=== PATIENT | male | born 1945 | race Caucasian/White ===

== ENCOUNTER 2020-11-10 14:07 | Emergency (ER) | payer OTHER ==
[2020-11-10] MEDS ORDERED: Sodium Chloride 0.9% 500 ML IV ONE (14:55)
[2020-11-10] MEDS ORDERED: Ketorolac 30 MG/ML SDV IVPUSH ONE (14:55)
[2020-11-10] MEDS ORDERED: Ondansetron 4 MG/2 ML SDV IVPUSH ONE (15:18)
[2020-11-10] MEDS ORDERED: Iopamidol 755 Mg/ML 100 ML Bottle IV ONE (15:40)
--- NOTE | 2020-11-10 15:48 | EDM.PDOC ---
ED HPI GENERAL MEDICAL PROBLEM - General Chief Complaint: Abdominal Pain Stated Complaint: STOMACH PAIN Time Seen by Provider: 11/10/20 14:25 Source of Information: Reports: Patient History Limitations: Reports: No Limitations - History of Present Illness INITIAL COMMENTS - FREE TEXT/NARRATIVE: c/o LLQ pain onset 4d ago at 5a until 10:30a, no radiation, then pain free, sharp felt fine 3d ago had pain again yesterday that has gotten worse unable to sleep last night, had 4 drinks alcohol in evening and did not want to come to ED as he had alcohol on breath no f/c/d last colonoscopy 10y ago, no polyps, does not think he had tics but not sure, done at [facility] says his has had diverticulitis pain localized to one specific area an LLQ towards flank, no back pain last BM 1d ago that was formed Right Lower Abdomen Pain Score (Numeric/FACES): 8 - Related Data Allergies Allergy/AdvReac Type Severity Reaction Status Date / Time No Known Allergies Allergy Verified 11/10/20 14:27 Home Meds: Home Meds Ascorbic Acid [Vitamin C] 1,000 mg PO DAILY 11/10/20 [History] Aspirin 81 mg PO DAILY 11/10/20 [History] Ciprofloxacin [Ciprofloxacin HCl] 500 mg PO BID #20 tab 11/10/20 [Rx] Finasteride [Proscar] 5 mg PO DAILY 11/10/20 [History] Glycerin/Propylene Glycol [Artificial Tears Drops] 1 drop EYEBOTH BID 11/10/20 [History] Hydrocodone/Acetaminophen [Hydrocodon-Acetaminophen 5-325] 1 each PO Q6H #12 tablet 11/10/20 [Rx] Ketorolac [Toradol] 10 mg PO QID #20 tab 11/10/20 [Rx] Multivitamin [Multi-Vitamin Daily] 1 tab PO DAILY 11/10/20 [History] Sennosides/Docusate Sodium [Docusate Sodium-Sennosides Tab] 2 tab PO BID PRN 11/10/20 [History] Sertraline [Zoloft] 100 mg PO BEDTIME 11/10/20 [History] Simvastatin [Zocor] 20 mg PO BEDTIME 11/10/20 [History] Valproic Acid [Depakene] 250 mg PO BID 11/10/20 [History] Past Medical History Cardiovascular History: Reports: High Cholesterol Genitourinary History: Reports: BPH, Renal Calculus Psychiatric History: Reports: Anxiety, Depression, PTSD - Infectious Disease History Infectious Disease History: Reports: Chicken Pox, Measles, Mumps - Past Surgical History Cardiovascular Surgical History: Reports: None Social & Family History - Tobacco Use Tobacco Use Status *Q: Former Tobacco User Used Tobacco, but Quit: Yes Month/Year Tobacco Last Used: 1999 Second Hand Smoke Exposure: No - Caffeine Use Caffeine Use: Reports: Coffee - Alcohol Use Days Per Week of Alcohol Use: 7 Number of Drinks Per Day: 1 Total Drinks Per Week: 7 - Recreational Drug Use Recreational Drug Use: No ED ROS GENERAL - Review of Systems Review Of Systems: See Below Constitutional: Denies: Fever, Chills, Diaphoresis HEENT: Reports: No Symptoms Respiratory: Reports: No Symptoms Cardiovascular: Reports: No Symptoms Endocrine: Reports: No Symptoms GI/Abdominal: Reports: Abdominal Pain, Other (mild nausea) : Reports: No Symptoms Musculoskeletal: Reports: No Symptoms Skin: Reports: No Symptoms Neurological: Reports: No Symptoms Psychiatric: Reports: No Symptoms Hematologic/Lymphatic: Reports: No Symptoms Immunologic: Reports: No Symptoms ED EXAM, GI/ABD - Physical Exam Exam: See Below Exam Limited By: No Limitations General Appearance: Alert, WD/WN, No Apparent Distress Nose: Normal Inspection, Normal Mucosa, No Blood Throat/Mouth: Normal Inspection, Normal Voice, No Airway Compromise Head: Atraumatic, Normocephalic Neck: Normal Inspection, Supple, Non-Tender, Full Range of Motion. No: Lymphadenopathy (R), Lymphadenopathy (L) Respiratory/Chest: No Respiratory Distress, Lungs Clear, Normal Breath Sounds, No Accessory Muscle Use, Chest Non-Tender Cardiovascular: Regular Rate, Rhythm, No Edema, No Murmur GI/Abdominal Exam: Normal Bowel Sounds, Soft, No Organomegaly, No Distention, Other (1-2+ tender just above L anterior superior iliac spine) Back Exam: Normal Inspection, Full Range of Motion. No: CVA Tenderness (R), CVA Tenderness (L) Extremities: Normal Inspection, Normal Range of Motion, Non-Tender, No Pedal Edema Neurological: Alert, Oriented, CN II-XII Intact, Normal Cognition, No Motor/Sensory Deficits Psychiatric: Normal Affect, Normal Mood Skin Exam: Warm, Dry, Intact, Normal Color, No Rash Lymphatic: No Adenopathy Course - Vital Signs Last Recorded V/S: Last Vital Signs Temp 36.8 C 11/10/20 14:17 Pulse 84 11/10/20 14:17 Resp 18 11/10/20 14:17 BP 143/82 H 11/10/20 14:17 Pulse Ox 96 11/10/20 14:17 - Orders/Labs/Meds Orders: Active Orders 24 hr Category Date Time Status Abdomen Pelvis w Cont [CT] Stat Exams 11/10/20 14:56 Taken Labs: Laboratory Tests 11/10/20 11/10/20 11/10/20 Range/Units 15:00 15:00 15:00 WBC 5.0 (3.2-10.1) x10-3/uL RBC 4.51 (3.90-5.90) x10(6)uL Hgb 14.7 (12.9-17.7) g/dL Hct 43.2 (38.3-50.1) % MCV 95.6 (80.8-98.7) fL MCH 32.5 (27.0-33.3) pg MCHC 34.0 (28.7-35.3) g/dL RDW 12.5 (12.4-15.0) % Plt Count 194 (117-477) x10(3)uL MPV 7.9 (6.7-11.0) fL Neut % (Auto) 55.8 (40.3-71.8) % Lymph % (Auto) 24.7 (15.8-45.3) % Lucas % (Auto) 15.6 H (5.5-15.2) % Eos % (Auto) 3.5 (0.1-6.8) % Baso % (Auto) 0.4 (0.3-3.8) % Neut # (Auto) 2.8 (1.7-6.9) x10-3/uL Lymph # (Auto) 1.2 (0.5-4.5) x10-3/uL Lucas # (Auto) 0.8 (0.0-1.2) x10-3/uL Eos # (Auto) 0.2 (0.0-0.6) x10-3/uL Baso # (Auto) 0.0 (0.0-0.3) x10-3/uL Sodium 144 (135-145) mmol/L Potassium 4.7 (3.5-5.3) mmol/L Chloride 104 (100-110) mmol/L Carbon Dioxide 32 (21-32) mmol/L BUN 21 H (7-18) mg/dL Creatinine 1.1 (0.70-1.30) mg/dL Est Cr Clr Drug Dosing 53.97 mL/min Estimated GFR (MDRD) > 60 (>60) BUN/Creatinine Ratio 19.1 (9-20) Glucose 88 (80-116) mg/dL Calcium 9.1 (8.6-10.2) mg/dL Total Bilirubin 0.3 (0.1-1.3) mg/dL AST 13 (5-25) IU/L ALT 18 (12-36) U/L Alkaline Phosphatase 55 L (56-112) IU/L C-Reactive Protein 4.8 H* (0.5-0.9) mg/dL Total Protein 7.4 (6.0-8.0) g/dL Albumin 3.5 (3.2-4.6) g/dL Globulin 3.9 g/dL Albumin/Globulin Ratio 0.9 Urine Color (YELLOW) Urine Appearance (CLEAR) Urine pH (5.0-6.5) Ur Specific Cypress (1.010-1.025) Urine Protein (NEGATIVE) mg/dL Urine Glucose (UA) (NORMAL) mg/dL Urine Ketones (NEGATIVE) mg/dL Urine Occult Blood (NEGATIVE) Urine Nitrite (NEGATIVE) Urine Bilirubin (NEGATIVE) Urine Urobilinogen (NEGATIVE) mg/dL Ur Leukocyte Esterase (NEGATIVE) Urine RBC (0-5) Urine WBC (0-5) Ur Squamous Epith Cells (NS,R,O) Urine Bacteria (NS) 11/10/20 Range/Units 16:15 WBC (3.2-10.1) x10-3/uL RBC (3.90-5.90) x10(6)uL Hgb (12.9-17.7) g/dL Hct (38.3-50.1) % MCV (80.8-98.7) fL MCH (27.0-33.3) pg MCHC (28.7-35.3) g/dL RDW (12.4-15.0) % Plt Count (117-477) x10(3)uL MPV (6.7-11.0) fL Neut % (Auto) (40.3-71.8) % Lymph % (Auto) (15.8-45.3) % Lucas % (Auto) (5.5-15.2) % Eos % (Auto) (0.1-6.8) % Baso % (Auto) (0.3-3.8) % Neut # (Auto) (1.7-6.9) x10-3/uL Lymph # (Auto) (0.5-4.5) x10-3/uL Lucas # (Auto) (0.0-1.2) x10-3/uL Eos # (Auto) (0.0-0.6) x10-3/uL Baso # (Auto) (0.0-0.3) x10-3/uL Sodium (135-145) mmol/L Potassium (3.5-5.3) mmol/L Chloride (100-110) mmol/L Carbon Dioxide (21-32) mmol/L BUN (7-18) mg/dL Creatinine (0.70-1.30) mg/dL Est Cr Clr Drug Dosing mL/min Estimated GFR (MDRD) (>60) BUN/Creatinine Ratio (9-20) Glucose (80-116) mg/dL Calcium (8.6-10.2) mg/dL Total Bilirubin (0.1-1.3) mg/dL AST (5-25) IU/L ALT (12-36) U/L Alkaline Phosphatase (56-112) IU/L C-Reactive Protein (0.5-0.9) mg/dL Total Protein (6.0-8.0) g/dL Albumin (3.2-4.6) g/dL Globulin g/dL Albumin/Globulin Ratio Urine Color Yellow (YELLOW) Urine Appearance Slightly cloudy (CLEAR) Urine pH 6.0 (5.0-6.5) Ur Specific Cypress 1.015 (1.010-1.025) Urine Protein Negative (NEGATIVE) mg/dL Urine Glucose (UA) Normal (NORMAL) mg/dL Urine Ketones Negative (NEGATIVE) mg/dL Urine Occult Blood Large H (NEGATIVE) Urine Nitrite Negative (NEGATIVE) Urine Bilirubin Negative (NEGATIVE) Urine Urobilinogen Normal (NEGATIVE) mg/dL Ur Leukocyte Esterase Small H (NEGATIVE) Urine RBC 10-20 H (0-5) Urine WBC 0-5 (0-5) Ur Squamous Epith Cells Occasional (NS,R,O) Urine Bacteria Rare H (NS) Meds: Medications Discontinued Medications Generic Name Dose Route Start Last Admin Trade Name Alfonsoq PRN Reason Stop Dose Admin Sodium Chloride 500 mls @ 999 mls/hr 11/10/20 14:55 11/10/20 15:01 Normal Saline IV 11/10/20 15:25 999 mls/hr .BOLUS ONE Administration Iopamidol 100 ml 11/10/20 15:40 11/10/20 15:52 Iopamidol 755 Mg/Ml 100 Ml Bottle IV 11/10/20 15:41 100 ml . DIRECTED ONE Administration Ketorolac Tromethamine 30 mg 11/10/20 14:55 11/10/20 15:06 Ketorolac 30 Mg/Ml Sdv IVPUSH 11/10/20 14:56 30 mg ONETIME ONE Administration Ondansetron HCl 4 mg 11/10/20 15:18 11/10/20 15:33 Ondansetron 4 Mg/2 Ml Sdv IVPUSH 11/10/20 15:19 4 mg ONETIME ONE Administration - Re-Assessments/Exams Free Text/Narrative Re-Assessment/Exam: 11/10/20 17:07 6 x 8 mm stone at left UVJ per Dr Grande urologist called at [facility], I spoke with [facility] operator helper who paged urologist, however page went to voicemail, no call back received at time of d/c pt said he could be contacted at home at [phone] or on cell at [phone] later this evening if urologist calls back on Proscar x 1m, has not tolerated tamsulosin in past, made him feel like he was having an OH CRP quite high, likely from prostatitis, ANNIE deferred as urologist will need to do one and he needs an antibiotic regardless pt has had kidney stones in past altho not in recent years present and received instructions as well Departure - Departure Time of Disposition: 16:52 Disposition: Home, Self-Care 01 Condition: Good Clinical Impression: Left ureteral stone, Hydroureter, left, Hydronephrosis, left, Nephrolithiasis, Elevated C-reactive protein (CRP), BPH (benign prostatic hyperplasia) - Discharge Information *PRESCRIPTION DRUG MONITORING PROGRAM REVIEWED*: Not Applicable *COPY OF PRESCRIPTION DRUG MONITORING REPORT IN PATIENT EH: Not Applicable Prescriptions: Ciprofloxacin [Ciprofloxacin HCl] 500 mg PO BID #20 tab Hydrocodone/Acetaminophen [Hydrocodon-Acetaminophen 5-325] 1 each PO Q6H #12 tablet Ketorolac [Toradol] 10 mg PO QID #20 tab Instructions: Renal Colic Referrals: PCP,Not In Area [Primary Care Provider] - Forms: ED Department Discharge Additional Instructions: You have a fairly large kidney stone in your left ureter that may require either lithotripsy or surgical removal by a urologist. See the urologist in 1-2 days before the weekend. Call the [facility] and ask to speak to the urologist's office at 8 AM tomorrow if you have not received additional instructions in the meantime. Although there is no infection in the bladder or kidney, you are running quite high on a test called a CRP (C-reactive protein), which suggests that there is infection hiding out in the prostate. For infection, take ciprofloxacin 500 mg 1 tab 2 times a day for 10 days. You may need to take it for a longer period of time depending on additional recommendations from the urologist. To decrease pain and relax the ureter, take ketorolac 10 mg 1 tab 4 times a day for 5 days. For pain, may also take hydrocodone with acetaminophen 5/325 mg 1 tab every 6 hours as needed. No alcohol within 8 hours of taking a hydrocodone. Use a strainer to catch the stone if you should pass it. If you feel worse or pain that is not controlled at home, return to the Emergency Department. Sepsis Event Note (ED) - Evaluation Sepsis Screening Result: No Definite Risk - Focused Exam Vital Signs: Vital Signs Temp Pulse Resp BP Pulse Ox 11/10/20 14:17 36.8 C 84 18 143/82 H 96 - My Orders Last 24 Hours: My Active Orders 11/10/20 14:56 Abdomen Pelvis w Cont [CT] Stat - Assessment/Plan Last 24 Hours: My Active Orders 11/10/20 14:56 Abdomen Pelvis w Cont [CT] Stat
--- NOTE | 2020-11-10 17:46 | CT ---
CT ABDOMEN AND PELVIS WITH CONTRAST 7389 INDICATION: Pain in left lower quadrant x4 days. Question diverticulitis. Spiral 3.75 mm axial sections were obtained through the abdomen and pelvis with 100 mL Isovue 370 at 2 ml/sec, with sagittal and coronal reconstructions 11/10/2020--no comparisons. Total exam DLP was 1342.03 mGy-cm. The lower lung oneil and pleural spaces visualized appeared normal. The heart did not appear enlarged. No pericardial effusion was seen. The gallbladder showed evidence of multiple small calculi but was otherwise unremarkable. The liver, spleen, pancreas, and left adrenal were unremarkable. The right adrenal gland had an 11 mm low-density lesion compatible with an adrenal adenoma. Bilateral renal calcinosis is noted with the largest calculi in the right kidney measuring 6.8 mm, one in the upper and lower pole, and with several other smaller calculi noted. Likewise on the left there are multiple small calculi present in the kidney. Additionally on the left, there is a low-density lesion 11 mm in size which may represent an involuting cyst. Also on the left, there is hydronephrosis and hydroureter down to the level of a 6.1 x 8.4 mm calculus impacted in the proximal ureter approximately 7 cm from the renal pelvis and compatible with at least a moderate degree of obstructive uropathy. No evidence of pyelonephritis was identified. There is a 31 mm exophytic low-density lesion compatible with simple cyst at the lower pole of the right kidney laterally and anteriorly. Urinary bladder was unremarkable. No definite prostatic enlargement was seen with a few small prostatic calcifications noted. The appendix appeared normal on coronal images 32 to 40 and axial images 70 to 89. No evidence of bowel obstruction of free air was seen. No evidence of ventral or inguinal hernia was identified. Calcifications are noted in the abdominal aorta, iliac, and femoral arteries. No retroperitoneal mass was seen. No additional mass lesions, organomegaly, or free fluid collections were identified in the abdomen and pelvis. IMPRESSION: 1. Obstructive uropathy on the left 7 cm from the renal pelvis due to a 6.1 x 8.4 mm calculus producing at least a moderate degree of obstructive uropathy with hydronephrosis and hydroureter. 2. Renal calcinosis. 3. Renal cystic changes bilaterally. 4. Cholelithiasis. 5. Minimal sigmoid diverticulosis without evidence of diverticulitis. Report was called to Dr. Olsen at [phone]. [facility]
== END 2020-11-10 17:15 | disposition home or self-care (01) ==
LOC: FB.ED 14:07
DX: N13.2 Hydronephrosis with renal and ureteral calculous obstruction (principal); N40.0 Benign prostatic hyperplasia without lower urinary tract symptoms; R79.89 Other specified abnormal findings of blood chemistry; E78.00 Pure hypercholesterolemia, unspecified; Z79.82 Long term (current) use of aspirin; Z79.899 Other long term (current) drug therapy; Z87.891 Personal history of nicotine dependence
CPT/HCPCS: 36415; 74177; 80053; 81001; 85025; 86140; 96374; 96375; 99284; J1885; J2405; J7040; Q9967

== ENCOUNTER 2021-02-18 18:27 | Emergency (ER) | payer OTHER ==
[2021-02-18] MEDS ORDERED: Acetaminophen/HYDROcodone 325-5 MG Tab PO ONE (18:28)
--- NOTE | 2021-02-18 19:01 | EDM.PDOC ---
ED HPI GENERAL MEDICAL PROBLEM - General Chief Complaint: Abdominal Pain Stated Complaint: KIDNEY STONES Time Seen by Provider: 02/18/21 18:35 Source of Information: Reports: Patient History Limitations: Reports: No Limitations - History of Present Illness INITIAL COMMENTS - FREE TEXT/NARRATIVE: c/o kidney stone pt has had pain and pressure in suprapubic area for 5d, will have inc'd pain 8/10 for 5 seconds and then subside, never gone completely taking no pain meds had an 8 mm stone 3m ago, required lithotripsy and stent at [facility] 2m ago before it cleared no f/c/d, no n/v, good appetite on Proscar for BPH, has not tolerated tamsulosin in the past Lower Mid-Anterior Abdomen Pain Score (Numeric/FACES): 8 - Related Data Allergies Allergy/AdvReac Type Severity Reaction Status Date / Time No Known Allergies Allergy Verified 11/10/20 14:27 Home Meds: Home Meds Ascorbic Acid [Vitamin C] 1,000 mg PO DAILY 11/10/20 [History] Aspirin 81 mg PO DAILY 11/10/20 [History] Ciprofloxacin [Ciprofloxacin HCl] 500 mg PO BID #20 tab 11/10/20 [Rx] Finasteride [Proscar] 5 mg PO DAILY 11/10/20 [History] Glycerin/Propylene Glycol [Artificial Tears Drops] 1 drop EYEBOTH BID 11/10/20 [History] Hydrocodone/Acetaminophen [HYDROcodone-Acetaminophen 5-325 MG] 1 each PO Q6H #12 tablet 11/10/20 [Rx] Ketorolac [Toradol] 10 mg PO QID #20 tab 11/10/20 [Rx] Multivitamin [Multi-Vitamin Daily] 1 tab PO DAILY 11/10/20 [History] Sennosides/Docusate Sodium [Docusate Sodium-Sennosides Tab] 2 tab PO BID PRN 11/10/20 [History] Sertraline [Zoloft] 100 mg PO BEDTIME 11/10/20 [History] Simvastatin [Zocor] 20 mg PO BEDTIME 11/10/20 [History] Valproic Acid [Depakene] 250 mg PO BID 11/10/20 [History] Past Medical History Cardiovascular History: Reports: High Cholesterol Genitourinary History: Reports: BPH, Renal Calculus Psychiatric History: Reports: Anxiety, Depression, PTSD - Infectious Disease History Infectious Disease History: Reports: Chicken Pox, Measles, Mumps - Past Surgical History Cardiovascular Surgical History: Reports: None Social & Family History - Family History Family Medical History: No Pertinent Family History - Tobacco Use Tobacco Use Status *Q: Unknown Ever Used Tobacco - Caffeine Use Caffeine Use: Reports: Coffee - Alcohol Use Days Per Week of Alcohol Use: 7 Number of Drinks Per Day: 7 Total Drinks Per Week: 49 - Recreational Drug Use Recreational Drug Use: No ED ROS GENERAL - Review of Systems Review Of Systems: See Below Constitutional: Reports: No Symptoms HEENT: Reports: No Symptoms Respiratory: Reports: No Symptoms Cardiovascular: Reports: No Symptoms Endocrine: Reports: No Symptoms GI/Abdominal: Reports: Abdominal Pain. Denies: Nausea, Vomiting : Reports: No Symptoms Musculoskeletal: Reports: No Symptoms Skin: Reports: No Symptoms Neurological: Reports: No Symptoms Psychiatric: Reports: No Symptoms Hematologic/Lymphatic: Reports: No Symptoms Immunologic: Reports: No Symptoms ED EXAM, RENAL/ - Physical Exam Exam: See Below Exam Limited By: No Limitations General Appearance: Alert, WD/WN, No Apparent Distress Ears: Hearing Grossly Normal Nose: Normal Inspection Throat/Mouth: Normal Inspection, Normal Lips, Normal Teeth, Normal Voice Head: Atraumatic, Normocephalic Neck: Normal Inspection, Supple, Non-Tender Respiratory/Chest: No Respiratory Distress, Lungs Clear, Chest Non-Tender Cardiovascular: Regular Rate, Rhythm, No Edema, No Gallop GI/Abdominal: Soft, Non-Tender, No Distention, Other (1+ suprapubic tender, NT elsewhere). No: Guarding, Rigid, Rebound Back Exam: Normal Inspection, Full Range of Motion. No: CVA Tenderness (R), CVA Tenderness (L) Extremities: Normal Inspection, Normal Range of Motion, Non-Tender, No Pedal Edema Neurological: Alert, Oriented, CN II-XII Intact, Normal Cognition, No Motor/Sensory Deficits Psychiatric: Normal Affect, Normal Mood Skin Exam: Warm, Dry, Intact, Normal Color, No Rash Lymphatic: No Adenopathy Course - Vital Signs Last Recorded V/S: Last Vital Signs Temp 37.4 C 02/18/21 18:50 Pulse 93 02/18/21 18:50 Resp 20 02/18/21 18:50 BP 129/85 02/18/21 18:50 Pulse Ox 96 02/18/21 18:50 - Orders/Labs/Meds Orders: Active Orders 24 hr Category Date Time Status Abdomen Pelvis wo Cont [CT] Stat Exams 02/18/21 18:55 Ordered CULTURE URINE [RM] Stat Lab 02/18/21 19:44 Ordered UA W/O MICROSCOPIC [URIN] Stat Lab 02/18/21 19:10 Ordered URINALYSIS W/MICROSCOPIC [UA W/MICROSCOPIC] [URIN] Stat Lab 02/18/21 18:54 Ordered Labs: Laboratory Tests 02/18/21 02/18/21 02/18/21 Range/Units 19:00 19:00 19:00 WBC 5.7 (3.2-10.1) x10-3/uL RBC 4.68 (3.90-5.90) x10(6)uL Hgb 15.0 (12.9-17.7) g/dL Hct 44.4 (38.3-50.1) % MCV 94.9 (80.8-98.7) fL MCH 32.0 (27.0-33.3) pg MCHC 33.7 (28.7-35.3) g/dL RDW 12.7 (12.4-15.0) % Plt Count 207 (117-477) x10(3)uL MPV 7.3 (6.7-11.0) fL Neut % (Auto) 58.2 (40.3-71.8) % Lymph % (Auto) 28.9 (15.8-45.3) % [place] % (Auto) 9.9 (5.5-15.2) % Eos % (Auto) 2.6 (0.1-6.8) % Baso % (Auto) 0.4 (0.3-3.8) % Neut # (Auto) 3.3 (1.7-6.9) x10-3/uL Lymph # (Auto) 1.6 (0.5-4.5) x10-3/uL [place] # (Auto) 0.6 (0.0-1.2) x10-3/uL Eos # (Auto) 0.1 (0.0-0.6) x10-3/uL Baso # (Auto) 0.0 (0.0-0.3) x10-3/uL Sodium 147 H (135-145) mmol/L Potassium 4.1 (3.5-5.3) mmol/L Chloride 106 (100-110) mmol/L Carbon Dioxide 31 (21-32) mmol/L BUN 22 H (7-18) mg/dL Creatinine 1.2 (0.70-1.30) mg/dL Est Cr Clr Drug Dosing 49.47 mL/min Estimated GFR (MDRD) 59 L (>60) BUN/Creatinine Ratio 18.3 (9-20) Glucose 112 (80-116) mg/dL Calcium 9.3 (8.6-10.2) mg/dL Total Bilirubin 0.3 (0.1-1.3) mg/dL AST 12 (5-25) IU/L ALT 21 D (12-36) U/L Alkaline Phosphatase 54 L (56-112) IU/L C-Reactive Protein (0.5-0.9) mg/dL Total Protein 7.5 (6.0-8.0) g/dL Albumin 3.7 (3.2-4.6) g/dL Globulin 3.8 g/dL Albumin/Globulin Ratio 1.0 Urine Color Yellow (YELLOW) Urine Appearance Clear (CLEAR) Urine pH 5.0 (5.0-6.5) Ur Specific [place] 1.025 (1.010-1.025) Urine Protein Trace (NEGATIVE) mg/dL Urine Glucose (UA) Normal (NORMAL) mg/dL Urine Ketones Negative (NEGATIVE) mg/dL Urine Occult Blood Large H (NEGATIVE) Urine Nitrite Negative (NEGATIVE) Urine Bilirubin Small H (NEGATIVE) Urine Urobilinogen Normal (NEGATIVE) mg/dL Ur Leukocyte Esterase Small H (NEGATIVE) U Hyaline Cast (Auto) Cancelled Urine RBC Cancelled Urine WBC Cancelled Ur Epithelial Cells Cancelled Ur Squamous Epith Cells Cancelled Ur Renal Epithelial Cell Cancelled Calcium Oxalate Crystal Cancelled Uric Acid Crystals Cancelled Triple Phos Crystals Cancelled Other Crystals Cancelled Amorphous Sediment Cancelled Urine Bacteria Cancelled Fine Granular Casts Cancelled Coarse Granular Casts Cancelled Waxy Casts Cancelled RBC Casts Cancelled WBC Casts Cancelled Urine Mucus Cancelled Urine Trichomonas Cancelled Urine Yeast Cancelled Urine Sperm Cancelled Ur Oval Fat Bodies Cancelled Urinalysis Comment Cancelled 02/18/21 Range/Units 19:00 WBC (3.2-10.1) x10-3/uL RBC (3.90-5.90) x10(6)uL Hgb (12.9-17.7) g/dL Hct (38.3-50.1) % MCV (80.8-98.7) fL MCH (27.0-33.3) pg MCHC (28.7-35.3) g/dL RDW (12.4-15.0) % Plt Count (117-477) x10(3)uL MPV (6.7-11.0) fL Neut % (Auto) (40.3-71.8) % Lymph % (Auto) (15.8-45.3) % [place] % (Auto) (5.5-15.2) % Eos % (Auto) (0.1-6.8) % Baso % (Auto) (0.3-3.8) % Neut # (Auto) (1.7-6.9) x10-3/uL Lymph # (Auto) (0.5-4.5) x10-3/uL [place] # (Auto) (0.0-1.2) x10-3/uL Eos # (Auto) (0.0-0.6) x10-3/uL Baso # (Auto) (0.0-0.3) x10-3/uL Sodium (135-145) mmol/L Potassium (3.5-5.3) mmol/L Chloride (100-110) mmol/L Carbon Dioxide (21-32) mmol/L BUN (7-18) mg/dL Creatinine (0.70-1.30) mg/dL Est Cr Clr Drug Dosing mL/min Estimated GFR (MDRD) (>60) BUN/Creatinine Ratio (9-20) Glucose (80-116) mg/dL Calcium (8.6-10.2) mg/dL Total Bilirubin (0.1-1.3) mg/dL AST (5-25) IU/L ALT (12-36) U/L Alkaline Phosphatase (56-112) IU/L C-Reactive Protein 0.7 (0.5-0.9) mg/dL Total Protein (6.0-8.0) g/dL Albumin (3.2-4.6) g/dL Globulin g/dL Albumin/Globulin Ratio Urine Color (YELLOW) Urine Appearance (CLEAR) Urine pH (5.0-6.5) Ur Specific [place] (1.010-1.025) Urine Protein (NEGATIVE) mg/dL Urine Glucose (UA) (NORMAL) mg/dL Urine Ketones (NEGATIVE) mg/dL Urine Occult Blood (NEGATIVE) Urine Nitrite (NEGATIVE) Urine Bilirubin (NEGATIVE) Urine Urobilinogen (NEGATIVE) mg/dL Ur Leukocyte Esterase (NEGATIVE) U Hyaline Cast (Auto) Urine RBC Urine WBC Ur Epithelial Cells Ur Squamous Epith Cells Ur Renal Epithelial Cell Calcium Oxalate Crystal Uric Acid Crystals Triple Phos Crystals Other Crystals Amorphous Sediment Urine Bacteria Fine Granular Casts Coarse Granular Casts Waxy Casts RBC Casts WBC Casts Urine Mucus Urine Trichomonas Urine Yeast Urine Sperm Ur Oval Fat Bodies Urinalysis Comment Meds: Medications Discontinued Medications Generic Name Dose Route Start Last Admin Trade Name Freq PRN Reason Stop Dose Admin Enoxaparin Sodium 100 mg 02/18/21 19:49 Enoxaparin 100 Mg/1 Ml Syringe SUBCUT 02/18/21 19:50 ONETIME ONE Ketorolac Tromethamine 30 mg 02/18/21 19:45 Ketorolac 30 Mg/Ml Sdv IM 02/18/21 19:46 ONETIME ONE Departure - Departure Time of Disposition: 19:51 Disposition: Home, Self-Care 01 Condition: Good Clinical Impression: Right ureteral stone - Discharge Information *PRESCRIPTION DRUG MONITORING PROGRAM REVIEWED*: Not Applicable *COPY OF PRESCRIPTION DRUG MONITORING REPORT IN PATIENT EH: Not Applicable Instructions: Renal Colic, Kidney Stones Forms: ED Department Discharge Additional Instructions: Strain your urine and save the stone if it passes. For pain, take ketorolac 10 mg 1 tab 4 times a day until the stone passes. For pain not controlled with ketorolac, take hydrocodone with acetaminophen 5/325 mg 1 tab every 6 hours as needed. No alchol. Call your urologist on Sunday and schedule a follow-up appointment. However, return to the Emergency Department if you have pain that cannot be controlled at home or have fever or other new symptoms. Sepsis Event Note (ED) - Evaluation Sepsis Screening Result: No Definite Risk - Focused Exam Vital Signs: Vital Signs Temp Pulse Resp BP Pulse Ox 02/18/21 18:50 37.4 C 93 20 129/85 96 - My Orders Last 24 Hours: My Active Orders 02/18/21 18:54 URINALYSIS W/MICROSCOPIC [UA W/MICROSCOPIC] [URIN] Stat 02/18/21 18:55 Abdomen Pelvis wo Cont [CT] Stat 02/18/21 19:10 UA W/O MICROSCOPIC [URIN] Stat 02/18/21 19:44 CULTURE URINE [RM] Stat - Assessment/Plan Last 24 Hours: My Active Orders 02/18/21 18:54 URINALYSIS W/MICROSCOPIC [UA W/MICROSCOPIC] [URIN] Stat 02/18/21 18:55 Abdomen Pelvis wo Cont [CT] Stat 02/18/21 19:10 UA W/O MICROSCOPIC [URIN] Stat 02/18/21 19:44 CULTURE URINE [RM] Stat
[2021-02-18] MEDS ORDERED: Ketorolac 30 MG/ML SDV IM ONE (19:45)
[2021-02-18] MEDS ORDERED: Enoxaparin 100 MG/1 ML Syringe SUBCUT ONE (19:49)
== END 2021-02-18 20:44 | disposition home or self-care (01) ==
LOC: FB.ED 18:27
DX: N20.1 Calculus of ureter (principal); E78.00 Pure hypercholesterolemia, unspecified; Z79.82 Long term (current) use of aspirin; Z79.899 Other long term (current) drug therapy
CPT/HCPCS: 36415; 74176; 80053; 81003; 85025; 86140; 87086; 96372; 99284; 99284-25; A9270-GY; J1885

== ENCOUNTER 2023-11-20 15:21 | Emergency (ER) | payer OTHER ==
[2023-11-20 15:46] LABS: BASOPHILS PERCENT AUTO 0.3 % (0.3-3.8); EOSINOPHILS ABSOLUTE AUTO 0.1 x10-3/uL (0.0-0.6); EOSINOPHILS PERCENT AUTO 1.5 % (0.1-6.8); HEMATOCRIT 43.2 % (38.3-50.1); HEMOGLOBIN 14.5 g/dL (12.9-17.7); LYMPHOCYTES ABSOLUTE AUTO 1.1 x10-3/uL (0.5-4.5); LYMPHOCYTES PERCENT AUTO 19.5 % (15.8-45.3); MEAN CORPUSCULAR HEMOGLOBIN 31.4 pg (27.0-33.3); MEAN CORPUSCULAR HGB CONC 33.6 g/dL (28.7-35.3); MEAN CORPUSCULAR VOLUME 93.4 fL (80.8-98.7); MEAN PLATELET VOLUME 7.6 fL (6.7-11.0); MONOCYTES ABSOLUTE AUTO 0.7 x10-3/uL (0.0-1.2); MONOCYTES PERCENT AUTO 12.5 % (5.5-15.2); NEUTROPHILS ABSOLUTE AUTO 3.7 x10-3/uL (1.7-6.9); NEUTROPHILS PERCENT AUTO 66.2 % (40.3-71.8); PLATELET COUNT,PLT 165 x10(3)uL (117-477); RED BLOOD CELL COUNT 4.62 x10(6)uL (3.90-5.90); RED CELL DISTRIBUTION WIDTH 12.9 % (12.4-15.0); WHITE BLOOD CELL COUNT,WBC 5.6 x10-3/uL (3.2-10.1)
[2023-11-20 15:49] LABS: BLOOD UREA NITROGEN,BUN 19 mg/dL (7-18); BUN/CREATININE RATIO 15.8 (9-20); CALCIUM 9.8 mg/dL (8.6-10.2); CARBON DIOXIDE,CO2 31 mmol/L (21-32); CHLORIDE,CL 105 mmol/L (100-110); CREATININE 1.2 mg/dL (0.70-1.30); ESTIMATED GFR 63 mL/min (>60); GLUCOSE RANDOM 89 mg/dL (80-116); POTASSIUM,K 4.3 mmol/L (3.5-5.3); SODIUM,NA 144 mmol/L (135-145)
[2023-11-20 15:55] LABS: ALANINE AMINOTRANSFERASE,ALT 20 U/L (12-36); ALBUMIN 3.8 g/dL (3.2-4.6); ALKALINE PHOSPHATASE 61 IU/L (56-112); ASPARTATE AMNIOTRANSFERASE,AST 16 IU/L (5-25); BILIRUBIN TOTAL 0.4 mg/dL (0.1-1.3); PROTEIN TOTAL,TP 7.7 g/dL (6.0-8.0)
[2023-11-20 16:47] LABS: BILIRUBIN,URINE NEGATIVE (NEGATIVE); GLUCOSE,URINE NORMAL (NORMAL); KETONES,URINE NEGATIVE (NEGATIVE); LEUKOCYTE ESTERASE,URINE NEGATIVE (NEGATIVE); NITRITE,URINE NEGATIVE (NEGATIVE); OCCULT BLOOD,URINE NEGATIVE (NEGATIVE); PROTEIN,URINE TRACE mg/dL (NEGATIVE); UROBILINOGEN,URINE NORMAL (NEGATIVE)
[2023-11-20 16:48] LABS: APPEARANCE,URINE CLEAR (CLEAR); BACTERIA,URINE FEW (NS); COLOR,URINE YELLOW (YELLOW); RBC,URINE 0-5 (0-5); SQUAMOUS EPITHELIAL CELLS,UR FEW (NS,R,O); WBC,URINE 0-5 (0-5)
[2023-11-20] MEDS: Ketorolac 30 MG/ML SDV IM ONE (16:56)
[2023-11-20] MEDS: Acetaminophen 500 MG Tab PO ONE (16:57)
== END 2023-11-20 17:35 | disposition home or self-care (01) ==
LOC: FB.ED 15:21
DX: S52.502A Unspecified fracture of the lower end of left radius, initial encounter for closed fracture (principal); S20.212A Contusion of left front wall of thorax, initial encounter; E78.00 Pure hypercholesterolemia, unspecified; Z79.82 Long term (current) use of aspirin; Z79.899 Other long term (current) drug therapy; W01.0XXA Fall on same level from slipping, tripping and stumbling without subsequent striking against object, initial encounter
CPT/HCPCS: 36415; 71101; 73110; 80053; 81001; 85025; 86140; 96372; 99285; A9270; J1885